=== PATIENT | female | born 1990 | race Caucasian/White ===

== ENCOUNTER 2017-04-19 16:11 | Emergency (ER) | payer BC ==
[2017-04-19] MEDS ORDERED: OXYCODONE-ACETAMINOPHEN 5-325 MG TABLET PO ONE (17:44)
--- NOTE | 2017-04-19 18:00 | ER Document Report ---
HPI - HPI Patient complains to provider of: r axillary pain Onset: Other - 2 days Onset/Duration: Worse Quality of pain: Sharp Pain Level: 4 Context: Patient presents complaining of tenderness to right axilla that radiates along right lateral area. Patient does state that pain makes her nauseous and she vomited 6 times. Patient did take Zofran at home and has not had any vomiting since then. Patient reports pain started 2 days ago. Patient does report that she has a cat and has been scratch to the right wrist but this was over a week ago. Pt States pain increases whenever she lifts her arm or touches her right axilla. Patient has not shaved or apply deodorant for several days. Associated Symptoms: Nausea, Vomiting, Other - Axillary pain. denies: Fever, Headache Exacerbated by: Movement Relieved by: Denies Similar symptoms previously: No Recently seen / treated by doctor: No - ROS ROS below otherwise negative: Yes Systems Reviewed and Negative: Yes All other systems reviewed and negative - CONSTITUTIONAL Constitutional: DENIES: Fever, Chills - NEURO Neurology: DENIES: Weakness - GASTROINTESTINAL Gastrointestinal: REPORTS: Nausea, Patient vomiting. DENIES: Abdominal Pain - REPRODUCTIVE LMP: march 28, 2017 - MUSCULOSKELETAL Musculoskeletal: REPORTS: Extremity pain - r axilla - DERM Skin Color: Normal Skin Problems: None Past Medical History - General Information source: Patient - Social History Smoking Status: Never Smoker Frequency of alcohol use: None Drug Abuse: None Occupation: daycare Family History: Reviewed & Not Pertinent Patient has suicidal ideation: No Patient has homicidal ideation: No - Medical History Medical History: Negative Renal/ Medical History: Denies: Hx Peritoneal Dialysis Surgical Hx: Negative Vertical Provider Document - CONSTITUTIONAL Exam Limitations: No Limitations General Appearance: WD/WN, No Apparent Distress - INFECTION CONTROL TRAVEL OUTSIDE OF THE [place] IN LAST 30 DAYS: No - HEENT HEENT: Atraumatic, Normocephalic - NECK Neck: Normal Inspection - RESPIRATORY Respiratory: Breath Sounds Normal, No Respiratory Distress - CARDIOVASCULAR Cardiovascular: Regular Rate, Regular Rhythm, No Murmur - GI/ABDOMEN Gastrointestinal: Abdomen Soft, Abdomen Non-Tender, No Organomegaly - BACK Back: Normal Inspection - MUSCULOSKELETAL/EXTREMETIES Musculoskeletal/Extremeties: Tender - Exquisite tenderness with palpation of the right axilla, tenderness to right axilla with elevation of right upper extremity, No Edema - NEURO Level of Consciousness: Awake, Alert, Appropriate Motor/Sensory: No Motor Deficit - DERM Integumentary: Warm, Dry Notes: Patient with few scattered erythematous macular lesions to right axilla. Patient with papular lesion that is scabbed to right wrist. Course - Re-evaluation Re-evalutation: 04/19/17 17:58 Dr. Perez to bedside for examination. Recommends treating for possible cat scratch as well as lymphadenitis. Discharge - Discharge Clinical Impression: Nausea, Axillary lymphadenitis Cat scratch of right wrist Qualifiers: Encounter type: initial encounter Qualified Code(s): S60.811A - Abrasion of right wrist, initial encounter Condition: Stable Disposition: HOME, SELF-CARE Instructions: Cat Scratch Fever ([facility]), Anti-Inflammatory Medication ([facility]), Oral Narcotic Medication ([facility]), Azithromycin ([facility]) Additional Instructions: Return immediately for any new or worsening symptoms Followup with your primary care provider, call tomorrow to make a followup appointment Apply warm compresses to right axilla at least 3 times a day Prescriptions: Azithromycin [Zithromax 250 mg Tablet] 250 mg PO DAILY 4 Days Oxycodone HCl/Acetaminophen [Percocet 5-325 mg Tablet] 1 - 2 tab PO ASDIR PRN # 15 tablet PRN Reason: Forms: Return to Work Referrals: YISEL FENG DO [NO LOCAL MD] - Follow up tomorrow
[2017-04-19] MEDS ORDERED: AZITHROMYCIN 250 MG TABLET PO ONE (18:04)
[2017-04-19 18:21] VITALS: BP 110/70
== END 2017-04-19 18:20 | disposition home or self-care (01) ==
LOC: ER 16:11
DX: I88.9 Nonspecific lymphadenitis, unspecified (principal); S60.811A Abrasion of right wrist, initial encounter; W55.03XA Scratched by cat, initial encounter; R11.2 Nausea with vomiting, unspecified
CPT/HCPCS: 99283

== ENCOUNTER 2017-12-26 09:07 | Emergency (ER) | payer BC ==
--- NOTE | 2017-12-26 09:17 | ER Document Report ---
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 Coworker called EMS. Started having nasal congestion and post nasal drip last night, with occasional painful cough, took OTC Tylenol cold and flu severe before bed and again this am. Started Neurontin 100mg up to 3 times per day for anxiety on Sunday. No fever, chest pain, SOB, abd. pain, N/V/D. No rash. at bedside. He and the co worker have witnessed her passing out several times in the room and after it is over has tingling in her legs. The nurse states that she fluttered her eyes and would not respond but then would to touch. Never had syncopal episodes in the past. TRAVEL OUTSIDE OF THE [place] IN LAST 30 DAYS: No - Related Data Allergies/Adverse Reactions: No Known Allergies Allergy (Verified 04/19/17 18:05) Past Medical History - General Information source: Patient - Social History Smoking Status: Never Smoker Frequency of alcohol use: None Drug Abuse: None Lives with: Family Family History: Reviewed & Not Pertinent - Medical History Medical History: Negative Renal/ Medical History: Denies: Hx Peritoneal Dialysis Psychiatric Medical History: Reports: Hx Anxiety Surgical Hx: Negative Review of Systems - Review of Systems Constitutional: No symptoms reported EENT: No symptoms reported Cardiovascular: No symptoms reported Respiratory: No symptoms reported Gastrointestinal: No symptoms reported Genitourinary: No symptoms reported Female Genitourinary: No symptoms reported Musculoskeletal: No symptoms reported Skin: No symptoms reported Hematologic/Lymphatic: No symptoms reported Neurological/Psychological: See HPI Physical Exam - Vital signs Vitals: BP 110/78 12/26/17 09:17 Interpretation: Normal - General General appearance: Appears well, Alert - HEENT Head: Normocephalic, Atraumatic Eyes: Normal Pupils: PERRL Neck: Supple - Respiratory Respiratory status: No respiratory distress Chest status: Nontender Breath sounds: Normal Chest palpation: Normal - Cardiovascular Rhythm: Regular Heart sounds: Normal auscultation Murmur: No - Abdominal Inspection: Normal Distension: No distension Bowel sounds: Normal Tenderness: Nontender Organomegaly: No organomegaly - Back Back: Normal, Nontender - Extremities General upper extremity: Normal inspection, Nontender, Normal color, Normal ROM , Normal temperature General lower extremity: Normal inspection, Nontender, Normal color, Normal ROM , Normal temperature, Normal weight bearing. No: Alena's sign - Neurological Neuro grossly intact: Yes Cognition: Normal Orientation: AAOx4 [place] Coma Scale Eye Opening: Spontaneous [place] Coma Scale Verbal: Oriented [place] Coma Scale Motor: Obeys Commands Rhe[place] Coma Scale Total: 15 Speech: Normal Motor strength normal: LUE, RUE, LLE, RLE Sensory: Normal - Psychological Associated symptoms: Normal affect, Normal mood - Skin Skin Temperature: Warm Skin Moisture: Dry Skin Color: Normal Skin irregularity: negative: Rash Course - Re-evaluation Re-evalutation: 12/26/17 10:17 EKG NSR, no ectopy. - Vital Signs Vital signs: Temp Pulse Resp BP Pulse Ox 97.5 F 60 15 94/56 L 100 12/26/17 09:18 12/26/17 10:39 12/26/17 12:01 12/26/17 12:01 12/26/17 12:01 - Laboratory Result Diagrams: 12/26/17 09:30 12/26/17 09:30 Laboratory results interpreted by me: 12/26/17 12/26/17 12/26/17 09:30 09:30 10:30 WBC 11.7 H Seg Neutrophils % 78.5 H Absolute Neutrophils 9.2 H Chloride 110 H Carbon Dioxide 21 L AST 12 L Urine Blood SMALL H Discharge - Discharge Clinical Impression: syncopal episode, Nasal congestion Condition: Good Disposition: HOME, SELF-CARE Instructions: Syncopal Episode ([facility]), Upper Respiratory Illness ([facility]) Additional Instructions: see your doctor for follow up hold the neurontin since it can cause dizziness to er if symptoms worsen copy of labs, ekg given to you cool mist humidier at night, wash it daily saline nasal spray Forms: Parent Work Note, Return to Work Referrals: CANDE LAM MD [Primary Care Provider] - Follow up as needed
[2017-12-26 09:49] LABS: ABSOLUTE BASOPHILS # (AUTO) 0.1 10^3/uL (0.0-0.2); ABSOLUTE EOSINOPHILS # (AUTO) 0.2 10^3/uL (0.0-0.6); ABSOLUTE LYMPHOCYTES (AUTO) 1.7 10^3/uL (0.5-4.7); ABSOLUTE MONOCYTES (AUTO) 0.6 10^3/uL (0.1-1.4); ABSOLUTE NEUT (AUTO) 9.2 10^3/uL (1.7-8.2); BASOPHILS % (AUTO) 0.6 % (0-2); EOSINOPHILS % (AUTO) 1.8 % (0-6); HEMATOCRIT 40.1 % (36.0-47.0); HEMOGLOBIN 13.7 g/dL (12.0-15.5); LYMPHOCYTES % (AUTO) 14.2 % (13-45); MEAN CORPUSCULAR HGB CONC 34.1 g/dL (32.0-36.0); MEAN CORPUSCULAR VOLUME 85 fl (80-97); MONOCYTES % (AUTO) 4.9 % (3-13); PLATELET COUNT 277 10^3/uL (150-450); RED CELL DISTRIBUTION WIDTH 12.9 % (11.5-14.0); SEGMENTED NEUTROPHILS % (AUTO) 78.5 % (42-78); TOTAL CELLS COUNTED % (AUTO) 100 %; WHITE BLOOD COUNT 11.7 10^3/uL (4.0-10.5)
[2017-12-26 10:00] LABS: ALANINE AMINOTRANSFERASE 24 U/L (9-52); ALBUMIN 3.9 g/dL (3.5-5.0); ALKALINE PHOSPHATASE 47 U/L (38-126); ANION GAP 9 (5-19); ASPARTATE AMINO TRANSFERASE 12 U/L (14-36); BILIRUBIN,DIRECT 0.4 mg/dL (0.0-0.4); BILIRUBIN,TOTAL 0.5 mg/dL (0.2-1.3); BLOOD UREA NITROGEN 10 mg/dL (7-20); CALCIUM 9.2 mg/dL (8.4-10.2); CARBON DIOXIDE 21 mmol/L (22-30); CHLORIDE 110 mmol/L (98-107); CREATINE KINASE 49 U/L (30-135); GLUCOSE 88 mg/dL (75-110); POTASSIUM 4.3 mmol/L (3.6-5.0); SODIUM 139.9 mmol/L (137-145); TOTAL PROTEIN 6.8 g/dL (6.3-8.2)
[2017-12-26 10:14] LABS: CREATINE KINASE MB < 0.22 ng/mL (<4.55); TROPONIN I < 0.012 ng/mL
[2017-12-26] MEDS ORDERED: NORMAL SALINE 1000 ML 1,000 ML IV ONE (10:17)
[2017-12-26 11:28] LABS: APPEARANCE,URINE CLEAR; BILIRUBIN,URINE NEGATIVE (NEGATIVE); COLOR,URINE YELLOW; GLUCOSE, URINE NEGATIVE (NEGATIVE); KETONES,URINE NEGATIVE (NEGATIVE); LEUKOCYTE ESTERASE,URINE NEGATIVE (NEGATIVE); NITRITE,URINE NEGATIVE (NEGATIVE); PROTEIN,URINE NEGATIVE (NEGATIVE); UROBILINOGEN,URINE NEGATIVE mg/dL (<2.0)
[2017-12-26 11:40] LABS: URINE AMPHETAMINES SCREEN NEGATIVE; URINE BARBITURATES SCREEN NEGATIVE; URINE BENZODIAZEPINES SCREEN UNCONFIRMED POSITIVE; URINE COCAINE SCREEN NEGATIVE; URINE MARIJUANA (THC) SCREEN NEGATIVE; URINE METHADONE SCREEN NEGATIVE; URINE PHENCYCLIDINE SCREEN NEGATIVE
[2017-12-26 12:17] VITALS: BP 94/56
--- NOTE | 2017-12-26 12:52 | EKG REPORT ---
SEVERITY:- BORDERLINE ECG - SINUS RHYTHM BORDERLINE RIGHT AXIS DEVIATION BORDERLINE T ABNORMALITIES, ANT-LAT LEADS : Confirmed by: Fritz Harry MD 26-Dec-2017 12:52:13
== END 2017-12-26 12:25 | disposition home or self-care (01) ==
LOC: ER 09:07
DX: R55 Syncope and collapse (principal); R09.81 Nasal congestion; R06.02 Shortness of breath; R42 Dizziness and giddiness; R09.82 Postnasal drip; R05 Cough; F41.9 Anxiety disorder, unspecified; Z79.899 Other long term (current) drug therapy
CPT/HCPCS: 93005; 99284; 96360; 36415; 82553; 82550; 84703; 85025; 80053; 81001; 84484; 80307; 93010; J7030

== ENCOUNTER 2018-01-15 09:04 | Emergency (ER) | payer BC ==
[2018-01-15 09:59] LABS: APPEARANCE,URINE SLIGHTLY-CLOUDY; BILIRUBIN,URINE NEGATIVE (NEGATIVE); COLOR,URINE YELLOW; GLUCOSE, URINE NEGATIVE (NEGATIVE); KETONES,URINE NEGATIVE (NEGATIVE); LEUKOCYTE ESTERASE,URINE NEGATIVE (NEGATIVE); NITRITE,URINE NEGATIVE (NEGATIVE); PROTEIN,URINE NEGATIVE (NEGATIVE); URINE SPECIFIC GRAVITY 1.026
[2018-01-15] MEDS ORDERED: HYDROCODONE/ACETAMINOPHEN 5-325 MG TABLET PO ONE (10:04)
[2018-01-15] MEDS ORDERED: ONDANSETRON 4 MG TAB.RAPDIS PO ONE (10:04)
[2018-01-15] MEDS ORDERED: IBUPROFEN 800 MG TABLET PO ONE (10:05)
--- NOTE | 2018-01-15 11:34 | ER Document Report ---
ED General - General Chief Complaint: Abdominal Pain Stated Complaint: ABDOMINAL PAIN, VAGINAL SPOTTING/DISCHARGE Time Seen by Provider: 01/15/18 09:17 Notes: This is a 27-year-old female to the emergency department chief complaint of vaginal bleeding and pelvic pain. Patient states that she began having some sharp and severe pain earlier this morning. Does not know if she is or not. Some vaginal discharge as well as vaginal bleeding. Some nausea. Denies any fever. Denies any diarrhea. No other sick contacts at home. Patient states that she does have a history of ovarian cysts. TRAVEL OUTSIDE OF THE [place] IN LAST 30 DAYS: No - HPI Onset: Just prior to arrival Severity: Moderate Pain Level: 3 Associated symptoms: Nausea - Related Data Allergies/Adverse Reactions: No Known Allergies Allergy (Verified 01/15/18 09:06) Past Medical History - General Information source: Patient - Social History Smoking Status: Never Smoker Cigarette use (# per day): No Frequency of alcohol use: None Drug Abuse: None Lives with: Family Family History: Reviewed & Not Pertinent Patient has suicidal ideation: No Patient has homicidal ideation: No Renal/ Medical History: Denies: Hx Peritoneal Dialysis Psychiatric Medical History: Reports: Hx Anxiety Past Surgical History: Reports: Hx Appendectomy Review of Systems - Review of Systems Constitutional: No symptoms reported EENT: No symptoms reported Cardiovascular: No symptoms reported Respiratory: No symptoms reported Gastrointestinal: No symptoms reported, Abdominal pain Genitourinary: No symptoms reported Female Genitourinary: No symptoms reported, Vaginal discharge, Vaginal bleeding Musculoskeletal: No symptoms reported Skin: No symptoms reported Hematologic/Lymphatic: No symptoms reported Neurological/Psychological: No symptoms reported Physical Exam - Vital signs Vitals: Temp Pulse Resp BP Pulse Ox 97.9 F 78 18 106/74 100 01/15/18 09:08 01/15/18 09:08 01/15/18 09:08 01/15/18 09:08 01/15/18 09:08 Interpretation: Normal - General General appearance: Appears well, Alert - HEENT Head: Normocephalic, Atraumatic Eyes: Normal Pupils: PERRL - Respiratory Respiratory status: No respiratory distress Chest status: Nontender Breath sounds: Normal Chest palpation: Normal - Cardiovascular Rhythm: Regular Heart sounds: Normal auscultation Murmur: No - Abdominal Inspection: Normal Distension: No distension Bowel sounds: Normal Tenderness: Other - Mild suprapubic tenderness/pelvic tenderness Organomegaly: No organomegaly - Genitourinary External exam: Normal Speculum exam: Normal Vaginal bleeding: None Bimanuel exam: Other - Mild tenderness to palpation in the left adnexa. No obvious masses. - Back Back: Normal, Nontender - Extremities General upper extremity: Normal inspection, Nontender, Normal color, Normal ROM , Normal temperature General lower extremity: Normal inspection, Nontender, Normal color, Normal ROM , Normal temperature, Normal weight bearing. No: Alena's sign - Neurological Neuro grossly intact: Yes Cognition: Normal Orientation: AAOx4 [place] Coma Scale Eye Opening: Spontaneous [place] Coma Scale Verbal: Oriented [place] Coma Scale Motor: Obeys Commands [place] Coma Scale Total: 15 Speech: Normal Motor strength normal: LUE, RUE, LLE, RLE Sensory: Normal - Psychological Associated symptoms: Normal affect, Normal mood - Skin Skin Temperature: Warm Skin Moisture: Dry Skin Color: Normal Course - Re-evaluation Re-evalutation: 01/15/18 11:33 Well-appearing female in no acute distress. Not . Urine unremarkable. Will get pelvic ultrasound to rule out ovarian torsion. Pelvic exam. Reassess. 01/15/18 11:55 Ultrasound confirms a left ovarian cyst. No evidence of . No evidence of torsion. No evidence of ectopic. At this time will recommend follow-up with [facility]. Have given oral as well as intramuscular pain injection - Vital Signs Vital signs: Temp Pulse Resp BP Pulse Ox 97.9 F 78 18 106/74 100 01/15/18 09:08 01/15/18 09:08 01/15/18 09:08 01/15/18 09:08 01/15/18 09:08 - Laboratory Laboratory results interpreted by me: 01/15/18 09:37 Urine Urobilinogen 4.0 H Discharge - Discharge Clinical Impression: Ovarian cyst Qualifiers: Laterality: left Qualified Code(s): N83.202 - Unspecified ovarian cyst, left side Condition: Good Disposition: HOME, SELF-CARE Instructions: Ovarian Cyst ([facility]) Prescriptions: Ondansetron [Zofran Odt 4 mg Tablet] 1 - 2 tab PO Q4HP PRN #10 tab.rapdis PRN Reason: Hydrocodone/Acetaminophen [[place] 5-325 mg Tablet] 1 tab PO TID PRN 3 Days #12 tablet PRN Reason: Ibuprofen [Motrin 800 mg Tablet] 800 mg PO Q8H PRN #30 tab PRN Reason: Referrals: ELIAN POOL PA-C [Primary Care Provider] - Follow up as needed THI DIAZ MD [ACTIVE STAFF] - Follow up as needed
--- NOTE | 2018-01-15 11:47 | RADIOLOGY REPORT (SQ) ---
EXAM DESCRIPTION: U/S NON OB PEL TV W/DOPPLER COMPLETED DATE/TIME: 01/15/2018 11:32 am REASON FOR STUDY: pelvic pain, hx of cyst COMPARISON: None. TECHNIQUE: Dynamic and static grayscale images acquired of the pelvis via transvaginal approach and recorded on PACS. Additional selected color Doppler and spectral images recorded. LIMITATIONS: None. FINDINGS: UTERUS: Contour normal. No mass. ENDOMETRIAL STRIPE: No focal or generalized thickening. No masses. CERVIX: Nabothian cyst RIGHT OVARY: Not visualized RIGHT OVARY DOPPLER: Not visualized LEFT OVARY: Multiple small benign appearing cysts. Largest 2 cm. LEFT OVARY DOPPLER: Normal arterial vascular flow without evidence for torsion. FREE FLUID: None noted. OTHER: No other significant finding. MEASUREMENTS: UTERUS: 9.0 x 6.7 x 4.4 cm ENDOMETRIAL STRIPE: 9.3 mm RIGHT OVARY: Not visualized LEFT OVARY: 3.5 x 2.3 x 2.8 cm IMPRESSION: Multiple small benign-appearing left ovarian cysts. Right ovary not visualized. TECHNICAL DOCUMENTATION: JOB ID: [id number] [employer]- All Rights Reserved Reading location - IP/workstation name: [email or web address]
[2018-01-15] MEDS ORDERED: HYDROMORPHONE HCL INJ/PF 2 MG/ML AMPULE IV ONE (11:54)
[2018-01-15] MEDS ORDERED: KETOROLAC TROMETHAMINE 60 MG/2 ML SDV IM ONE (11:54)
[2018-01-15 12:07] LABS: RBCS (WET MOUNT) RARE RBCS SEEN; T.VAGINALIS (WET MOUNT) NO TRICHOMONAS SEEN; WBCS (WET MOUNT) 1+ WBCS SEEN; YEAST (WET MOUNT) NO YEAST SEEN
[2018-01-15 13:40] VITALS: BP 110/68
[2018-01-15 13:48] LABS: CHLAM PCR NOT DETECTED (NOT DETECT); GON PCR NOT DETECTED (NOT DETECT)
== END 2018-01-15 14:03 | disposition home or self-care (01) ==
LOC: ER 09:04
DX: N83.202 Unspecified ovarian cyst, left side (principal); R10.2 Pelvic and perineal pain; N93.9 Abnormal uterine and vaginal bleeding, unspecified; N89.8 Other specified noninflammatory disorders of vagina; R11.0 Nausea; Z90.49 Acquired absence of other specified parts of digestive tract
CPT/HCPCS: 99284; 96372; 96374; 87210; 81025; 81001; 87491; 87591; 76830; 93976; J1885; S0119; J1170

== ENCOUNTER → 2018-04-11 | Outpatient (CLI) | payer BC ==
[2018-04-11 11:54] LABS: ABSOLUTE BASOPHILS # (AUTO) 0.1 10^3/uL (0.0-0.2); ABSOLUTE LYMPHOCYTES (AUTO) 2.2 10^3/uL (0.5-4.7); ABSOLUTE MONOCYTES (AUTO) 0.4 10^3/uL (0.1-1.4); ABSOLUTE NEUT (AUTO) 2.9 10^3/uL (1.7-8.2); BASOPHILS % (AUTO) 0.9 % (0-2); EOSINOPHILS % (AUTO) 0.6 % (0-6); HEMATOCRIT 40.1 % (36.0-47.0); HEMOGLOBIN 13.9 g/dL (12.0-15.5); LYMPHOCYTES % (AUTO) 39.1 % (13-45); MEAN CORPUSCULAR HEMOGLOBIN 29.8 pg (27.0-33.4); MEAN CORPUSCULAR HGB CONC 34.6 g/dL (32.0-36.0); MEAN CORPUSCULAR VOLUME 86 fl (80-97); PLATELET COUNT 281 10^3/uL (150-450); RED BLOOD COUNT 4.65 10^6/uL (3.72-5.28); RED CELL DISTRIBUTION WIDTH 13.7 % (11.5-14.0); SEGMENTED NEUTROPHILS % (AUTO) 52.4 % (42-78); TOTAL CELLS COUNTED % (AUTO) 100 %; WHITE BLOOD COUNT 5.5 10^3/uL (4.0-10.5)
[2018-04-11 12:12] LABS: ALANINE AMINOTRANSFERASE 21 U/L (9-52); ALBUMIN 4.8 g/dL (3.5-5.0); ALKALINE PHOSPHATASE 44 U/L (38-126); ANION GAP 12 (5-19); ASPARTATE AMINO TRANSFERASE 15 U/L (14-36); BILIRUBIN,DIRECT 0.2 mg/dL (0.0-0.4); BILIRUBIN,TOTAL 0.6 mg/dL (0.2-1.3); BLOOD UREA NITROGEN 11 mg/dL (7-20); CALCIUM 9.8 mg/dL (8.4-10.2); CARBON DIOXIDE 24 mmol/L (22-30); CHLORIDE 107 mmol/L (98-107); CHOLESTEROL 187.94 mg/dL (0-200); GLUCOSE 80 mg/dL (75-110); POTASSIUM 4.4 mmol/L (3.6-5.0); SODIUM 143.4 mmol/L (137-145); TOTAL PROTEIN 7.8 g/dL (6.3-8.2); TRIGLYCERIDES 43 mg/dL (<150)
[2018-04-11 12:23] LABS: DIRECT LDL 94 mg/dL (<100)
== END ==
LOC: OD 11:07
PROVIDERS: ATTEND Psychiatry & Neurology Psychiatry
DX: F33.1 Major depressive disorder, recurrent, moderate (principal); F41.1 Generalized anxiety disorder; F41.8 Other specified anxiety disorders; F43.10 Post-traumatic stress disorder, unspecified; G47.00 Insomnia, unspecified
CPT/HCPCS: 36415; 80053; 80061; 84443; 85025

== ENCOUNTER 2018-10-12 09:43 | Outpatient (CLI) | payer BC, MEDICAID ==
[2018-10-12 10:36] LABS: RBCS (WET MOUNT) RARE RBCS SEEN; T.VAGINALIS (WET MOUNT) NO TRICHOMONAS SEEN; WBCS (WET MOUNT) 1+ WBCS SEEN; YEAST (WET MOUNT) NO YEAST SEEN
[2018-10-12 10:57] LABS: URINE AMPHETAMINES SCREEN NEGATIVE; URINE BARBITURATES SCREEN NEGATIVE; URINE BENZODIAZEPINES SCREEN NEGATIVE; URINE COCAINE SCREEN NEGATIVE; URINE MARIJUANA (THC) SCREEN NEGATIVE; URINE METHADONE SCREEN NEGATIVE; URINE PHENCYCLIDINE SCREEN NEGATIVE
[2018-10-12 11:12] LABS: AMORPHOUS SEDIMENT,URINE TRACE /HPF; APPEARANCE,URINE TURBID; BILIRUBIN,URINE NEGATIVE (NEGATIVE); COLOR,URINE AMBER; GLUCOSE, URINE NEGATIVE (NEGATIVE); KETONES,URINE NEGATIVE (NEGATIVE); LEUKOCYTE ESTERASE,URINE NEGATIVE (NEGATIVE); NITRITE,URINE NEGATIVE (NEGATIVE); PROTEIN,URINE NEGATIVE (NEGATIVE); URINE SPECIFIC GRAVITY 1.019
== END 2018-10-12 12:12 | disposition home or self-care (01) ==
LOC: LC 09:43
PROVIDERS: ATTEND Obstetrics & Gynecology
PROC: 4A1HXCZ Monitoring of Products of Conception, Cardiac Rate, External Approach (ICD-10-PCS; principal; 2018-10-12)
DX: O23.593 Infection of other part of genital tract in pregnancy, third trimester (principal); N76.0 Acute vaginitis; B96.89 Other specified bacterial agents as the cause of diseases classified elsewhere; Z3A.29 29 weeks gestation of pregnancy
CPT/HCPCS: 80307; 81001; 87210

== ENCOUNTER 2018-11-27 15:18 | Outpatient (CLI) | payer BC, MEDICAID ==
--- NOTE | 2018-11-27 15:51 | Non Stress Test Report ---
Non Stress Test Datetime Report Generated by CPN: 11/27/2018 15:50 DEMOGRAPHIC EGA NST: 36.0 INDICATION Indication for Study: Diabetes Mellitus; Ordered by Provider VITAL SIGNS Temperature - NST: 98.4 Pulse - NST: 85 RESP - NST: 17 NBPSYS NST: 97 NBPDIA NST: 57 MONITORING Monitor Explained: Monitor Explained; Test Explained; Patient Verbalized Understanding Time on Monitor: 11/27/2018 15:28 Time off Monitor: 11/27/2018 15:49 NST Duration: 21 NST INTERVENTIONS NST Interventions: PO Hydration; Reposition Patient Physician Notified NST: Dr Younger BABY A: [id number] BABY A Movement : Present Contraction Frequency : denies FHR Baseline : 150 Accelerations : 15X15 Decelerations : None Variability : Moderate 6-25bpm NST Review: Meets Criteria for Reactive NST NST Review and Verified By : MK Oconnell Results: Reactive NST REPORT Report Trigger: Send Report
== END 2018-11-27 16:02 | disposition home or self-care (01) ==
LOC: LC 15:18
PROVIDERS: ATTEND Obstetrics & Gynecology
PROC: 4A1HXCZ Monitoring of Products of Conception, Cardiac Rate, External Approach (ICD-10-PCS; principal; 2018-11-27)
DX: O24.419 Gestational diabetes mellitus in pregnancy, unspecified control (principal); Z3A.36 36 weeks gestation of pregnancy
CPT/HCPCS: 59025

== ENCOUNTER 2018-12-04 14:49 | Outpatient (CLI) | payer BC, MEDICAID ==
--- NOTE | 2018-12-04 15:53 | Non Stress Test Report ---
Non Stress Test Datetime Report Generated by CPN: 12/04/2018 15:52 DEMOGRAPHIC EGA NST: 37.0 INDICATION Indication for Study: Diabetes Mellitus; Ordered by Provider VITAL SIGNS Temperature - NST: 98.4 Pulse - NST: 107 RESP - NST: 16 NBPSYS NST: 101 NBPDIA NST: 67 MONITORING Monitor Explained: Monitor Explained; Test Explained; Patient Verbalized Understanding; Other Time on Monitor: 12/04/2018 14:56 Time off Monitor: 12/04/2018 15:42 NST Duration: 46 NST INTERVENTIONS NST Interventions: PO Hydration; Reposition Patient Physician Notified NST: C Flood CNM BABY A: [id number] BABY A Movement : Present Accelerations : 15X15 Decelerations : None Variability : Moderate 6-25bpm NST Review: Questionable if Meets Criteria for Reactive NST NST Review and Verified By : Chaka Solitario RN NST REPORT Report Trigger: Send Report
== END 2018-12-04 15:46 | disposition home or self-care (01) ==
LOC: LC 14:49
PROVIDERS: ATTEND Obstetrics & Gynecology
PROC: 4A1HXCZ Monitoring of Products of Conception, Cardiac Rate, External Approach (ICD-10-PCS; principal; 2018-12-04)
DX: O24.419 Gestational diabetes mellitus in pregnancy, unspecified control (principal); Z3A.37 37 weeks gestation of pregnancy
CPT/HCPCS: 59025

== ENCOUNTER 2018-12-06 23:58 | Outpatient (CLI) | payer BC, MEDICAID ==
[2018-12-07 00:28] LABS: APPEARANCE,URINE SLIGHTLY-CLOUDY; BILIRUBIN,URINE NEGATIVE (NEGATIVE); COLOR,URINE YELLOW; GLUCOSE, URINE NEGATIVE (NEGATIVE); KETONES,URINE NEGATIVE (NEGATIVE); LEUKOCYTE ESTERASE,URINE TRACE (NEGATIVE); NITRITE,URINE NEGATIVE (NEGATIVE); PROTEIN,URINE NEGATIVE (NEGATIVE); URINE SPECIFIC GRAVITY 1.008; UROBILINOGEN,URINE NEGATIVE mg/dL (<2.0)
[2018-12-07 00:47] LABS: URINE AMPHETAMINES SCREEN NEGATIVE; URINE BARBITURATES SCREEN NEGATIVE; URINE BENZODIAZEPINES SCREEN NEGATIVE; URINE COCAINE SCREEN NEGATIVE; URINE MARIJUANA (THC) SCREEN NEGATIVE; URINE METHADONE SCREEN NEGATIVE; URINE PHENCYCLIDINE SCREEN NEGATIVE
--- NOTE | 2018-12-07 00:51 | Non Stress Test Report ---
Non Stress Test Datetime Report Generated by CPN: 12/07/2018 00:51 DEMOGRAPHIC EGA NST: 37.3 INDICATION Indication for Study: Ordered by Provider MONITORING Monitor Explained: Monitor Explained; Test Explained; Patient Verbalized Understanding Time on Monitor: 12/07/2018 00:16 Time off Monitor: 12/07/2018 00:44 NST Duration: 28 NST INTERVENTIONS NST Interventions: PO Hydration Physician Notified NST: Dr. Younger BABY A: [id number] BABY A Movement : Present Contraction Frequency : irregular FHR Baseline : 120 Accelerations : 15X15 Decelerations : None Variability : Moderate 6-25bpm NST Review: Meets Criteria for Reactive NST NST Review and Verified By : Garrett Mendez RN NST Results: Reactive NST REPORT Report Trigger: Send Report
== END 2018-12-07 00:55 | disposition home or self-care (01) ==
LOC: LC 23:58
PROVIDERS: ATTEND Obstetrics & Gynecology
PROC: 4A1HXCZ Monitoring of Products of Conception, Cardiac Rate, External Approach (ICD-10-PCS; principal; 2018-12-06)
DX: O47.1 False labor at or after 37 completed weeks of gestation (principal); O36.8130 Decreased fetal movements, third trimester, not applicable or unspecified; Z3A.37 37 weeks gestation of pregnancy
CPT/HCPCS: 59025; 80307; 81005

== ENCOUNTER 2018-12-19 05:20 | Inpatient (IN) | payer BC, MEDICAID ==
[2018-12-17 11:48] LABS: ABSOLUTE EOSINOPHILS # (AUTO) 0.1 10^3/uL (0.0-0.6); ABSOLUTE LYMPHOCYTES (AUTO) 1.7 10^3/uL (0.5-4.7); ABSOLUTE MONOCYTES (AUTO) 0.6 10^3/uL (0.1-1.4); ABSOLUTE NEUT (AUTO) 7.5 10^3/uL (1.7-8.2); BASOPHILS % (AUTO) 0.4 % (0-2); EOSINOPHILS % (AUTO) 0.6 % (0-6); HEMATOCRIT 36.7 % (36.0-47.0); HEMOGLOBIN 13.1 g/dL (12.0-15.5); LYMPHOCYTES % (AUTO) 16.9 % (13-45); MEAN CORPUSCULAR HEMOGLOBIN 31.9 pg (27.0-33.4); MEAN CORPUSCULAR HGB CONC 35.6 g/dL (32.0-36.0); MEAN CORPUSCULAR VOLUME 90 fl (80-97); MONOCYTES % (AUTO) 6.3 % (3-13); PLATELET COUNT 244 10^3/uL (150-450); RED BLOOD COUNT 4.09 10^6/uL (3.72-5.28); RED CELL DISTRIBUTION WIDTH 13.2 % (11.5-14.0); SEGMENTED NEUTROPHILS % (AUTO) 75.8 % (42-78); TOTAL CELLS COUNTED % (AUTO) 100 %; WHITE BLOOD COUNT 9.9 10^3/uL (4.0-10.5)
[2018-12-17 11:58] LABS: AMORPHOUS SEDIMENT,URINE TRACE /HPF; APPEARANCE,URINE CLOUDY; BILIRUBIN,URINE NEGATIVE (NEGATIVE); COLOR,URINE YELLOW; GLUCOSE, URINE NEGATIVE (NEGATIVE); KETONES,URINE NEGATIVE (NEGATIVE); LEUKOCYTE ESTERASE,URINE NEGATIVE (NEGATIVE); NITRITE,URINE NEGATIVE (NEGATIVE); PROTEIN,URINE NEGATIVE (NEGATIVE); URINE SPECIFIC GRAVITY 1.013; UROBILINOGEN,URINE NEGATIVE mg/dL (<2.0)
[2018-12-17 12:23] LABS: URINE AMPHETAMINES SCREEN NEGATIVE; URINE BARBITURATES SCREEN NEGATIVE; URINE BENZODIAZEPINES SCREEN NEGATIVE; URINE COCAINE SCREEN NEGATIVE; URINE MARIJUANA (THC) SCREEN NEGATIVE; URINE METHADONE SCREEN NEGATIVE; URINE PHENCYCLIDINE SCREEN NEGATIVE
[~2018-12-19 05:20] MED LIST: CEFAZOLIN 1 GM/D5W RTU 1 GM/50 ML RTUPB IV PRN; LACTATED RINGERS 1000 ML IV PRN; LIDOCAINE 0.5% INJ-PF (5 MG/ML) 50 ML SDV SUBCUT PRN; RINGERS SOLUTION,LACTATED 1,000 ML IV PRN
[2018-12-19] MEDS ORDERED: OXYTOCIN 10 UNIT/ML VIAL ONE (08:00)
[2018-12-19] MEDS ORDERED: MIDAZOLAM 2 MG/2 ML INJ ONE ×2 (08:00→08:30)
[2018-12-19] MEDS ORDERED: OXYTOCIN/NORMAL SALINE 20 UNIT/1,000 ML RTUINJ ONE (08:01)
[2018-12-19] MEDS ORDERED: MORPHINE SULFATE 10 MG/ML INJ ONE ×2 (08:01→10:16)
[2018-12-19] MEDS ORDERED: DIPHENHYDRAMINE HCL 50 MG/ML VIAL IV PRN (08:08)
[2018-12-19] MEDS ORDERED: MORPHINE SULFATE 10 MG/ML INJ IV PRN (08:08)
[2018-12-19] MEDS ORDERED: PROMETHAZINE HCL INJ 25 MG/1 ML VIAL IV PRN ×3 (08:08→08:55)
[2018-12-19] MEDS ORDERED: MEPERIDINE HCL/PF INJ 25 MG/1 ML DISP.SYRIN IV PRN (08:08)
[2018-12-19] MEDS ORDERED: FENTANYL CITRATE INJ/PF 100 MCG/2 ML AMPUL IV PRN ×3 (08:08)
[2018-12-19] MEDS ORDERED: OXYTOCIN/NORMAL SALINE 20 UNIT/1,000 ML RTUINJ IV PRN (08:55)
[2018-12-19] MEDS ORDERED: MEASLES,MUMPS&RUBELLA VACC/PF 0.5 ML VIAL SUBCUT PRN (08:55)
[2018-12-19] MEDS ORDERED: DIPH/PERTUSS(ACELL)/TETANUS VAC/PF 0.5 ML SYR (>=10YO) IM PRN (08:55)
[2018-12-19] MEDS ORDERED: SIMETHICONE 80 MG TAB.CHEW PO PRN (08:55)
[2018-12-19] MEDS ORDERED: MORPHINE SULFATE 10 MG/ML INJ IM PRN (08:55)
[2018-12-19] MEDS ORDERED: ACETAMINOPHEN 325 MG TABLET PO PRN (08:55)
[2018-12-19] MEDS ORDERED: ACETAMINOPHEN 1,000 MG/100 ML RTUPB IV ONE (08:58)
--- NOTE | 2018-12-19 08:58 | PDOC DELIVERY SUMMARY ---
Delivery Summary - Maternal Hx : II Hx # Term Pregnancies: 2 ANGELES: 12/25/16 Risk Factors: Other Ruptured Membranes: AROM Fluids: Clear - Delivery Labor: Not In Labor Presentation: Vertex Heart Rate Monitoring: Done Pre-Operatively, Externally Support Person Present: Yes : Scheduled Placenta: Within Normal Limits Nuchal Cord: No - Medications Type of Anesthesia:: Spinal
--- NOTE | 2018-12-19 09:01 | OPERATIVE REPORT E ---
Operative Report NAME: ELIAN BONILLA : 1990 AGE: 28Y DATE OF SURGERY: 12/19/2018 ROOM: 227 PREOPERATIVE DIAGNOSIS: INTRAUTERINE AT TERM WITH HISTORY OF PRIOR VAGINAL TRAUMA. POSTOPERATIVE DIAGNOSIS: INTRAUTERINE AT TERM WITH HISTORY OF PRIOR VAGINAL TRAUMA. PROCEDURE: Primary low transverse section with delivery of a viable female, Apgars of 9 and 9., weight is pending. SURGEON: Chaka MCKEON M.D. TISSUE REMOVED Placenta. ESTIMATED BLOOD LOSS: Less than 600 mL. ANESTHESIA: Spinal. PROCEDURE: The patient was placed in the supine position and prepped and draped in a sterile fashion. A Pfannenstiel incision was made and incision extended through the subcutaneous tissue with fascia sharp dissection. Fascia was sharply divided. Rectus muscle was bluntly and sharply divided. Parietal peritoneum was entered with sharp dissection. The uterus was nicked in the midline and extended bilaterally. was then delivered through the uterine abdominal incision. Nose and mouth were suctioned with bulb syringe, cord was clamped, and was passed from the table. Placenta was manually extracted. The uterus was closed using 2 layers using #1 Vicryl. The first running stitch and the second a Lembert stitch imbricating the first layer. There were several areas of bleeding noted and controlled with figure of eight sutures of 0 Vicryl. The fascia closed with 0 Vicryl, and the skin was closed with subcutaneous absorbable landry. Patient tolerated well and was taken to recovery in good condition. Her urine remained clear throughout the procedure. Infant went to [facility] in good condition. DICTATING PHYSICIAN: Chaka MCKEON M.D. [id number] [facility]#: [id number] ID: [id number] JOB#: [id number] ACCT: [id number] cc:Chaka MCKEON M.D. >
[2018-12-19] MEDS: FENTANYL CITRATE INJ/PF 100 MCG/2 ML AMPUL ONE ×4 (09:30→10:20)
[2018-12-19] MEDS ORDERED: PROMETHAZINE HCL INJ 25 MG/1 ML VIAL ONE (09:33)
[2018-12-19] MEDS ORDERED: KETOROLAC TROMETHAMINE INJ/PF 30 MG/1 ML SDV ONE (10:36)
[2018-12-19] MEDS: OXYCODONE-ACETAMINOPHEN 5-325 MG TABLET PO PRN ×3 (12:19→20:27)
[2018-12-19] MEDS: KETOROLAC TROMETHAMINE INJ/PF 30 MG/1 ML SDV IV SCH (17:53)
[2018-12-19] MEDS: DOCUSATE SODIUM 100 MG CAPSULE PO SCH (17:54)
[2018-12-20] MEDS: OXYCODONE-ACETAMINOPHEN 5-325 MG TABLET PO PRN ×5 (00:31→20:26)
[2018-12-20] MEDS: KETOROLAC TROMETHAMINE INJ/PF 30 MG/1 ML SDV IV SCH (02:37)
[2018-12-20 08:24] LABS: HEMATOCRIT 34.2 % (36.0-47.0); MEAN CORPUSCULAR HEMOGLOBIN 31.9 pg (27.0-33.4); MEAN CORPUSCULAR HGB CONC 35.2 g/dL (32.0-36.0); MEAN CORPUSCULAR VOLUME 91 fl (80-97); PLATELET COUNT 214 10^3/uL (150-450); RED BLOOD COUNT 3.77 10^6/uL (3.72-5.28); RED CELL DISTRIBUTION WIDTH 12.9 % (11.5-14.0); WHITE BLOOD COUNT 12.2 10^3/uL (4.0-10.5)
[2018-12-20] MEDS: PRENATAL VITAMIN W DHA CAPSULE PO SCH (10:08)
[2018-12-20] MEDS: DOCUSATE SODIUM 100 MG CAPSULE PO SCH ×2 (10:08→20:15)
[2018-12-20] MEDS: IBUPROFEN 800 MG TABLET PO SCH ×2 (11:36→20:15)
--- NOTE | 2018-12-20 13:08 | PDOC PROGRESS REPORT ---
Subjective-OB Progress Note for:: 12/20/18 Subjective: Pt doing well, no concerns. She reports light bleeding, reg diet and +flatus. Ambulatory Physical Exam (OB) Vital Signs: Temp Pulse Resp BP Pulse Ox 97.4 F 73 18 119/77 99 12/20/18 08:28 12/20/18 08:28 12/20/18 08:28 12/20/18 08:28 12/20/18 08:28 Intake & Output 12/19/18 12/20/18 12/21/18 06:59 06:59 06:59 Intake Total 2550 300 Output Total 3325 Balance -775 300 - PIH/Pre-Eclampsia DTR's: 2 + Clonus: Negative Headache: Absent Epigastric Pain: No Visual Changes: No - Dressing Removed: No Incision: Dressing - Lochia Lochia Amount: Scant < 10 ml Lochia Color: Rubra/Red - Abdomen Description: Tender Hernia Present: No Fundal Description: Firm, Midline Fundal Height: u/u - u/2 Objective-Diagnostic Laboratory: 12/20/18 07:56 12/20/18 12/20/18 07:56 07:56 WBC 12.2 H RBC 3.77 Hgb 12.0 Hct 34.2 L MCV 91 MCH 31.9 MCHC 35.2 RDW 12.9 Plt Count 214 Blood Type A NEGATIVE Assessment and Plan(PN) - Assessment and Plan (1) Status post primary low transverse section Is this a current diagnosis for this admission?: Yes - Time Spent with Patient Time with patient: Less than 15 minutes Medications reviewed and adjusted accordingly: Yes - Disposition Anticipated Discharge: Home Within: within 24 hours, within 48 hours
[2018-12-21] MEDS: IBUPROFEN 800 MG TABLET PO SCH ×3 (01:54→12:41)
[2018-12-21] MEDS: OXYCODONE-ACETAMINOPHEN 5-325 MG TABLET PO PRN ×2 (01:57→09:55)
[2018-12-21] MEDS: KETOROLAC TROMETHAMINE INJ/PF 30 MG/1 ML SDV IV SCH ×2 (03:58→09:56)
--- NOTE | 2018-12-21 09:34 | PDOC DISCHARGE SUMMARY ---
Final Diagnosis Discharge Date: 12/21/18 - Final Diagnosis (1) Status post primary low transverse section Is this a current diagnosis for this admission?: Yes Discharge Data - Discharge Medication Prescriptions: Oxycodone HCl/Acetaminophen [Percocet 5-325 mg Tablet] 1 tab PO Q4HP PRN #30 tablet PRN Reason: Ibuprofen [Motrin 800 mg Tablet] 800 mg PO Q8HP PRN #60 tablet PRN Reason: Home Medications: Clomiphene Citrate [Serophene 50 mg Tablet] 1 tab PO DAILY 10/12/18 Dronabinol [Marinol 2.5 mg Capsule] 1 tab PO DAILY 10/12/18 Jaqroc99/Iron Fum,Ps/Folic/Dha [Provida Dha Capsule] 1 tab PO DAILY 10/12/18 Sertraline HCl [Zoloft 50 mg Tablet] 1 tab PO DAILY 10/12/18 Ibuprofen [Motrin 800 mg Tablet] 800 mg PO Q8HP PRN #60 tablet 12/21/18 Oxycodone HCl/Acetaminophen [Percocet 5-325 mg Tablet] 1 tab PO Q4HP PRN #30 tablet 12/21/18 Reason(s) for Admission: Ceasarean Section-Primary Procedures: None Intrapartum Procedure(s): : Low Cervical, Transverse - Diagnosis Test Laboratory: Temp Pulse Resp BP Pulse Ox 98.2 F 78 18 113/71 98 12/21/18 07:32 12/21/18 07:32 12/21/18 07:32 12/21/18 07:32 12/21/18 07:32 12/17/18 12/17/18 12/20/18 11:10 11:10 07:56 RBC 4.09 3.77 Hgb 13.1 12.0 Hct 36.7 34.2 L Urine Opiates Screen NEGATIVE - Discharge information/Instructions Discharge Activity: Activity As Tolerated, No Lifting Over 10 Pounds, No Lifting/Push/Pulling, Pelvic Rest, No tub bath Discharge Diet: Regular Disposition: HOME, SELF-CARE Follow [facility] with: [facility] in: 5, Days
[2018-12-21] MEDS: DOCUSATE SODIUM 100 MG CAPSULE PO SCH (09:55)
[2018-12-21] MEDS: PRENATAL VITAMIN W DHA CAPSULE PO SCH (09:55)
[2018-12-21 11:48] VITALS: BP 109/77
== END 2018-12-21 12:53 | disposition home or self-care (01) | DRG 788 ==
LOC: 2S 05:20
PROVIDERS: ADMIT Obstetrics & Gynecology Gynecology; ATTEND Obstetrics & Gynecology Gynecology
PROC: 4A1HXCZ Monitoring of Products of Conception, Cardiac Rate, External Approach (ICD-10-PCS; 2018-12-19)
PROC: 10D00Z1 Extraction of Products of Conception, Low, Open Approach (ICD-10-PCS; principal; 2018-12-19 08:30)
DX: O24.420 Gestational diabetes mellitus in childbirth, diet controlled (principal); O99.344 Other mental disorders complicating childbirth; Z87.59 Personal history of other complications of pregnancy, childbirth and the puerperium; F41.9 Anxiety disorder, unspecified; F32.9 Major depressive disorder, single episode, unspecified; Z37.0 Single live birth; Z90.49 Acquired absence of other specified parts of digestive tract; Z3A.39 39 weeks gestation of pregnancy
CPT/HCPCS: 1961; 36415; 59025; 80307; 81001; 82962; 85025; 85027; 85461; 86850; 86900; 86901; 94799; J0131; J1885; J2250; J2270; J2550; J2590; J2790; J3010; J3490; J7120

== ENCOUNTER 2020-06-19 14:12 | Emergency (ER) | payer BC, MEDICAID ==
[2020-06-19] MEDS ORDERED: KETOROLAC TROMETHAMINE INJ/PF 30 MG/1 ML SDV IV ONE (14:20)
[2020-06-19] MEDS ORDERED: ONDANSETRON HCL INJ/PF 4 MG/2 ML SDV IV ONE (14:20)
--- NOTE | 2020-06-19 14:21 | ER Document Report ---
ED Medical Screen (RME) - General Chief Complaint: Pelvic Pain Stated Complaint: PELVIC PAIN Time Seen by Provider: 06/19/20 14:17 Primary Care Provider: RODRIGUEZ MCKEON MD [Primary Care Provider] - Follow up as needed Mode of Arrival: Ambulatory Information source: Patient Notes: Otherwise healthy 30-year-old female presents the emergency department chief complaint of left lower quadrant abdominal pain that began last night. Patient reports a history of ovarian cyst, states this felt similar although they usually rupture on their own and this pain is worse than usual. She reports nausea that accompanies the pain to. Denies any fever, chills, vomiting or diarrhea. Reports normal BM this morning. Point tenderness to the left lower quadrant/suprapubic area. I have greeted and performed a rapid initial assessment of this patient. A comprehensive ED assessment and evaluation of the patient, analysis of test results and completion of the medical decision making process will be conducted by additional ED providers. I have specifically instructed the patient or family members with the patient to immediately return to any nursing staff should anything change in the patient's condition or with their chief complaint. TRAVEL OUTSIDE OF THE [place] IN LAST 30 DAYS: No - Related Data Allergies/Adverse Reactions: No Known Allergies Allergy (Verified 12/17/18 10:22) Past Medical History - Past Medical History Cardiac Medical History: Denies: Hx Pulmonary Embolism Pulmonary Medical History: Reports: Hx Asthma - worse as a child Denies: Hx Sleep Apnea, Hx Tuberculosis Endocrine Medical History: Denies: Hx Hyperthyroidism, Hx Hypothyroidism Renal/ Medical History: Reports: Hx Kidney Stones, Hx Ovarian Cysts. Denies: Hx Peritoneal Dialysis, Hx Pelvic Inflammatory Disease Malignancy Medical History: Denies: Hx Breast Cancer, Hx Cervical Cancer, Hx Ovarian Cancer GI Medical History: Denies: Hx Gastroesophageal Reflux Disease, Hx Hiatal Hernia, Hx Ulcer Psychiatric Medical History: Reports: Hx Anxiety, Hx Depression, Hx Post Traumatic Stress Disorder Denies: Hx Bipolar Disorder, Hx Schizophrenia Infectious Medical History: Denies: Hx HIV Past Surgical History: Reports: Hx Appendectomy Doctor's Discharge - Discharge Referrals: RODRIGUEZ MCKEON MD [Primary Care Provider] - Follow up as needed
[2020-06-19 15:03] LABS: ABSOLUTE BASOPHILS # (AUTO) 0.1 10^3/uL (0.0-0.2); ABSOLUTE EOSINOPHILS # (AUTO) 0.1 10^3/uL (0.0-0.6); ABSOLUTE LYMPHOCYTES (AUTO) 2.4 10^3/uL (0.5-4.7); ABSOLUTE MONOCYTES (AUTO) 0.7 10^3/uL (0.1-1.4); ABSOLUTE NEUT (AUTO) 6.6 10^3/uL (1.7-8.2); BASOPHILS % (AUTO) 0.8 % (0-2); EOSINOPHILS % (AUTO) 0.8 % (0-6); HEMATOCRIT 43.4 % (36.0-47.0); HEMOGLOBIN 15.2 g/dL (12.0-15.5); LYMPHOCYTES % (AUTO) 24.3 % (13-45); MEAN CORPUSCULAR HEMOGLOBIN 30.9 pg (27.0-33.4); MEAN CORPUSCULAR VOLUME 88 fl (80-97); MONOCYTES % (AUTO) 6.8 % (3-13); PLATELET COUNT 307 10^3/uL (150-450); RED BLOOD COUNT 4.92 10^6/uL (3.72-5.28); RED CELL DISTRIBUTION WIDTH 12.6 % (11.5-14.0); SEGMENTED NEUTROPHILS % (AUTO) 67.3 % (42-78); TOTAL CELLS COUNTED % (AUTO) 100 %; WHITE BLOOD COUNT 9.8 10^3/uL (4.0-10.5)
[2020-06-19 15:08] LABS: ALBUMIN 4.5 g/dL (3.5-5.0); ALKALINE PHOSPHATASE 59 U/L (38-126); ANION GAP 10 (5-19); ASPARTATE AMINO TRANSFERASE 20 U/L (14-36); BILIRUBIN,DIRECT 0.2 mg/dL (0.0-0.4); BILIRUBIN,TOTAL 0.5 mg/dL (0.2-1.3); BLOOD UREA NITROGEN 12 mg/dL (7-20); CALCIUM 9.5 mg/dL (8.4-10.2); CARBON DIOXIDE 23 mmol/L (22-30); CHLORIDE 104 mmol/L (98-107); GLUCOSE 98 mg/dL (75-110); POTASSIUM 4.1 mmol/L (3.6-5.0); TOTAL PROTEIN 7.8 g/dL (6.3-8.2)
[2020-06-19 15:17] LABS: APPEARANCE,URINE CLEAR; BILIRUBIN,URINE NEGATIVE (NEGATIVE); COLOR,URINE YELLOW; GLUCOSE, URINE NEGATIVE (NEGATIVE); KETONES,URINE NEGATIVE (NEGATIVE); LEUKOCYTE ESTERASE,URINE NEGATIVE (NEGATIVE); NITRITE,URINE NEGATIVE (NEGATIVE); PROTEIN,URINE NEGATIVE (NEGATIVE); URINE SPECIFIC GRAVITY 1.018; UROBILINOGEN,URINE NEGATIVE mg/dL (<2.0)
--- NOTE | 2020-06-19 15:35 | RADIOLOGY REPORT (SQ) ---
EXAM DESCRIPTION: U/S NON OB PEL TV W/DOPPLER IMAGES COMPLETED DATE/TIME: 06/19/2020 3:14 pm REASON FOR STUDY: LLQ pain COMPARISON: None. TECHNIQUE: Dynamic and static grayscale images acquired of the pelvis via transvaginal approach and recorded on PACS. Additional selected color Doppler and spectral images recorded. LIMITATIONS: None. FINDINGS: UTERUS: Contour normal. No mass. ENDOMETRIAL STRIPE: No focal or generalized thickening. No masses. CERVIX: No nabothian cysts. RIGHT OVARY AND DOPPLER: Normal size. No worrisome masses. Normal arterial vascular flow without evid ence for torsion. LEFT OVARY AND DOPPLER: Normal size. 1.9 cm complex left ovarian cyst. Normal arterial vascular alexei w without evidence for torsion. FREE FLUID: None noted. OTHER: No other significant finding. MEASUREMENTS: UTERUS: 9.5 x 5.4 x 4.8 cm ENDOMETRIAL STRIPE: 11 mm RIGHT OVARY: 2.1 x 1.7 x 1.7 cm LEFT OVARY: 3.4 x 2.7 x 2.6 cm IMPRESSION: 1.9 cm complex left ovarian cyst. Normal arterial vascular flow without evidence for to rsion. TECHNICAL DOCUMENTATION: JOB ID: [id number] [place]-72 2010 [employer]- All Rights Reserved Rev-03/15 Reading location - IP/workstation name: [email or web address]
[2020-06-19] MEDS ORDERED: FENTANYL CITRATE INJ/PF 100 MCG/2 ML AMPUL IV ONE (15:37)
--- NOTE | 2020-06-19 15:38 | ER Document Report ---
ED GI/ - General Chief Complaint: Abdominal Pain Stated Complaint: PELVIC PAIN Time Seen by Provider: 06/19/20 14:17 Primary Care Provider: RODRIGUEZ MCKEON MD [ACTIVE STAFF] - 06/21/20 Mode of Arrival: Ambulatory Information source: Patient Notes: Patient presents complaining of left lower quadrant abdominal pain that started yesterday. Patient states the pain is made her nauseous and she is vomited 1 time. Patient denies any diarrhea. Patient denies any fever. Patient reports last bowel movement was normal and was today. Patient does complain of some mild dysuria. TRAVEL OUTSIDE OF THE [place] IN LAST 30 DAYS: No - HPI Patient complains to provider of: Pelvic pain Onset: Yesterday Timing/Duration: Worse Quality of pain: Sharp Pain Level: 4 Location: LLQ Vaginal bleeding (Compared to normal period): None Associated symptoms: Dysuria, Nausea, Vomiting. denies: Chills, Fever, Urinary hesitancy, Urinary frequency, Urinary retention, Urinary urgency, Vaginal discharge Exacerbated by: Denies Relieved by: Denies Similar symptoms previously: Yes - Ovarian cyst Recently seen / treated by doctor: No - Related Data Allergies/Adverse Reactions: No Known Allergies Allergy (Verified 12/17/18 10:22) Home Medications: control, zoloft, seroquel, marinol Past Medical History - General Information source: Patient - Social History Smoking Status: Never Smoker Chew tobacco use (# tins/day): No Frequency of alcohol use: None Drug Abuse: None Occupation: None Lives with: Family Family History: Reviewed & Not Pertinent - Past Medical History Cardiac Medical History: Denies: Hx Pulmonary Embolism Pulmonary Medical History: Reports: Hx Asthma - worse as a child Denies: Hx Sleep Apnea, Hx Tuberculosis Endocrine Medical History: Denies: Hx Hyperthyroidism, Hx Hypothyroidism Renal/ Medical History: Reports: Hx Kidney Stones, Hx Ovarian Cysts. Denies: Hx Peritoneal Dialysis, Hx Pelvic Inflammatory Disease Malignancy Medical History: Denies: Hx Breast Cancer, Hx Cervical Cancer, Hx Ovarian Cancer GI Medical History: Denies: Hx Gastroesophageal Reflux Disease, Hx Hiatal Hernia, Hx Ulcer Psychiatric Medical History: Reports: Hx Anxiety, Hx Depression, Hx Post Traumatic Stress Disorder Denies: Hx Bipolar Disorder, Hx Schizophrenia Infectious Medical History: Denies: Hx HIV Past Surgical History: Reports: Hx Appendectomy, Hx Section Review of Systems - Review of Systems Constitutional: No symptoms reported. denies: Fever EENT: No symptoms reported Cardiovascular: No symptoms reported Respiratory: No symptoms reported. denies: Cough, Short of breath Gastrointestinal: Abdominal pain, Nausea, Vomiting. denies: Diarrhea Genitourinary: Dysuria. denies: Flank pain, Hematuria Female Genitourinary: No symptoms reported. denies: Vaginal discharge, Vaginal bleeding Musculoskeletal: No symptoms reported. denies: Back pain Skin: No symptoms reported Hematologic/Lymphatic: No symptoms reported Neurological/Psychological: No symptoms reported Physical Exam - Vital signs Vitals: Temp 98.9 F 06/19/20 14:19 - General General appearance: Appears well, Alert In distress: None - HEENT Head: Normocephalic, Atraumatic Eyes: Normal Conjunctiva: Normal Nasal: Normal Mouth/Lips: Normal Mucous membranes: Normal Neck: Normal, Supple. No: Lymphadenopathy - Respiratory Respiratory status: No respiratory distress Chest status: Nontender Breath sounds: Normal. No: Rales, Rhonchi, Stridor, Wheezing Chest palpation: Normal - Cardiovascular Rhythm: Regular Heart sounds: S1 appreciated, S2 appreciated - Abdominal Inspection: Normal Distension: No distension Bowel sounds: Normal Tenderness: Tender - LLQ, Guarding Organomegaly: No organomegaly - Back Back: Normal, Nontender. No: CVA tenderness - Extremities General upper extremity: Normal inspection, Nontender, Normal strength General lower extremity: Normal inspection, Nontender, Normal strength - Neurological Neuro grossly intact: Yes Cognition: Normal [place] Coma Scale Eye Opening: Spontaneous [place] Coma Scale Verbal: Oriented [place] Coma Scale Motor: Obeys Commands [place] Coma Scale Total: 15 - Psychological Associated symptoms: Normal affect, Normal mood - Skin Skin Temperature: Warm Skin Moisture: Dry Skin Color: Normal Course - Re-evaluation Re-evalutation: 06/19/20 15:56 Patient with a complex left ovarian cyst that measures 1.9 cm. Patient given a dose of pain medication and she does state that her pain is much better at this time. Patient encouraged to follow-up with a clinical assistant for any persistent pain or problems. Patient presents with abdominal pain without signs of peritonitis or other life-threatening or serious etiology. Patient appears stable for discharge and has been instructed to return immediately if the symptoms worsen in any way. - Vital Signs Vital signs: Temp Pulse Resp BP Pulse Ox 98.3 F 72 16 109/61 100 06/19/20 16:43 06/19/20 16:43 06/19/20 16:43 06/19/20 16:43 06/19/20 16:43 - Laboratory Result Diagrams: 06/19/20 14:36 06/19/20 14:36 Laboratory results interpreted by me: 06/19/20 14:36 Urine Blood MODERATE H 06/19/20 15:57 Labs- All tests 24 hr 06/19/20 06/19/20 06/19/20 14:36 14:36 14:36 WBC 9.8 RBC 4.92 Hgb 15.2 Hct 43.4 MCV 88 MCH 30.9 MCHC 35.0 RDW 12.6 Plt Count 307 Lymph % (Auto) 24.3 [place] % (Auto) 6.8 Eos % (Auto) 0.8 Baso % (Auto) 0.8 Absolute Neuts (auto) 6.6 Absolute Lymphs (auto) 2.4 Absolute Monos (auto) 0.7 Absolute Eos (auto) 0.1 Absolute Basos (auto) 0.1 Seg Neutrophils % 67.3 Sodium 137.1 Potassium 4.1 Chloride 104 Carbon Dioxide 23 Anion Gap 10 BUN 12 Creatinine 0.63 Est GFR ( Amer) > 60 Est GFR (MDRD) Non-Af > 60 Glucose 98 Calcium 9.5 Total Bilirubin 0.5 Direct Bilirubin 0.2 Neonat Total Bilirubin Not Reportable Neonat Direct Bilirubin Not Reportable Neonat Indirect Bili Not Reportable AST 20 ALT 18 Alkaline Phosphatase 59 Total Protein 7.8 Albumin 4.5 Serum HCG, Qual NEGATIVE Urine Color Urine Appearance Urine pH Ur Specific [place] Urine Protein Urine Glucose (UA) Urine Ketones Urine Blood Urine Nitrite Urine Bilirubin Urine Urobilinogen Ur Leukocyte Esterase Urine WBC (Auto) Urine RBC (Auto) Squamous Epi Cells Auto Urine Mucus (Auto) Urine Ascorbic Acid 06/19/20 14:36 WBC RBC Hgb Hct MCV MCH MCHC RDW Plt Count Lymph % (Auto) [place] % (Auto) Eos % (Auto) Baso % (Auto) Absolute Neuts (auto) Absolute Lymphs (auto) Absolute Monos (auto) Absolute Eos (auto) Absolute Basos (auto) Seg Neutrophils % Sodium Potassium Chloride Carbon Dioxide Anion Gap BUN Creatinine Est GFR ( Amer) Est GFR (MDRD) Non-Af Glucose Calcium Total Bilirubin Direct Bilirubin Neonat Total Bilirubin Neonat Direct Bilirubin Neonat Indirect Bili AST ALT Alkaline Phosphatase Total Protein Albumin Serum HCG, Qual Urine Color YELLOW Urine Appearance CLEAR Urine pH 6.0 Ur Specific [place] 1.018 Urine Protein NEGATIVE Urine Glucose (UA) NEGATIVE Urine Ketones NEGATIVE Urine Blood MODERATE H Urine Nitrite NEGATIVE Urine Bilirubin NEGATIVE Urine Urobilinogen NEGATIVE Ur Leukocyte Esterase NEGATIVE Urine WBC (Auto) 0 Urine RBC (Auto) 4 Squamous Epi Cells Auto <1 Urine Mucus (Auto) RARE Urine Ascorbic Acid NEGATIVE - Diagnostic Test Radiology reviewed: Reports reviewed Discharge - Discharge Clinical Impression: Left ovarian cyst Condition: Stable Disposition: HOME, SELF-CARE Instructions: Oral Narcotic Medication ([facility]), Ovarian Cyst ([facility]), Pelvic Pain ([facility]) Additional Instructions: Return immediately for any new or worsening symptoms: Worsening pain, fever, persistent vomiting, any concerning new symptoms Followup with your primary care provider, call tomorrow to make a followup appointment Follow-up with clinical assistant for further management of your left ovarian cyst Prescriptions: Naproxen [Naprosyn 250 Nmg Tablet] 1 tab PO BID #14 tablet Hydrocodone/Acetaminophen [[place] 5-325 mg Tablet] 1 tab PO Q6 PRN #10 tablet PRN Reason: Ondansetron [Zofran Odt 4 mg Tablet] 1 tab PO Q6H #15 tab.rapdis Forms: Parent Work Note Referrals: RODRIGUEZ MCKEON MD [ACTIVE STAFF] - 06/21/20
[2020-06-19 16:43] VITALS: BP 109/61
== END 2020-06-19 16:44 | disposition home or self-care (01) ==
LOC: ER 14:12
DX: N83.202 Unspecified ovarian cyst, left side (principal); R10.32 Left lower quadrant pain; R10.814 Left lower quadrant abdominal tenderness; R11.2 Nausea with vomiting, unspecified; R30.0 Dysuria; J45.909 Unspecified asthma, uncomplicated; F41.9 Anxiety disorder, unspecified; F32.9 Major depressive disorder, single episode, unspecified; Z79.3 Long term (current) use of hormonal contraceptives; Z79.899 Other long term (current) drug therapy
CPT/HCPCS: 99285; 96374; 96375; 36415; 84703; 85025; 80053; 81001; 76830; 93976; J3010; J1885; J2405

== ENCOUNTER 2020-11-04 15:56 | Emergency (ER) | payer BC, MEDICAID ==
[2020-11-04] MEDS ORDERED: KETOROLAC TROMETHAMINE INJ/PF 30 MG/1 ML SDV IM ONE (18:36)
[2020-11-04] MEDS ORDERED: ONDANSETRON 4 MG TAB.RAPDIS PO ONE (18:36)
--- NOTE | 2020-11-04 18:38 | ER Document Report ---
ED Medical Screen (RME) - General Chief Complaint: Breast Problem Stated Complaint: BREAST PAIN Time Seen by Provider: 11/04/20 18:18 Mode of Arrival: Ambulatory Information source: Patient TRAVEL OUTSIDE OF THE [place] IN LAST 30 DAYS: No - HPI Patient complains to provider of: Axillary and breast pain Notes: 11/04/20 18:36 Patient here with complaints of pain in the bilateral axillary areas that is radiating into the sides of her breast. Pain started today. She denies any trauma or injury. She denies any redness or swelling. She denies any fever. She does states that she has had some nausea and vomiting due to the pain. No abdominal pain. She is not breast-feeding. She denies any nipple discharge. Exam: Nontoxic, no distress. Lungs clear throughout. Heart sounds normal. Significant tenderness to palpation of the bilateral axilla and lateral aspects of the breast with no mass, redness or swelling identified. Exam performed with female fireproof door assembler at the bedside. An initial examination was made on the patient as part of the triage process, and it was determined a more comprehensive evaluation was necessary. Initial orders were placed and patient was transferred to another provider in the ED who assumed care and finished evaluation and plan. - Related Data Allergies/Adverse Reactions: No Known Allergies Allergy (Verified 11/04/20 18:15) Home Medications: ZOLOFT. SEROQUEL. MARINOL. CONTROL Past Medical History - Social History Chew tobacco use (# tins/day): No Frequency of alcohol use: None Drug Abuse: None - Past Medical History Cardiac Medical History: Denies: Hx Pulmonary Embolism Pulmonary Medical History: Reports: Hx Asthma - worse as a child Denies: Hx Sleep Apnea, Hx Tuberculosis Endocrine Medical History: Denies: Hx Hyperthyroidism, Hx Hypothyroidism Renal/ Medical History: Reports: Hx Kidney Stones, Hx Ovarian Cysts. Denies: Hx Peritoneal Dialysis, Hx Pelvic Inflammatory Disease Malignancy Medical History: Denies: Hx Breast Cancer, Hx Cervical Cancer, Hx Ovarian Cancer GI Medical History: Denies: Hx Gastroesophageal Reflux Disease, Hx Hiatal Hernia, Hx Ulcer Psychiatric Medical History: Reports: Hx Anxiety, Hx Depression, Hx Post Traumatic Stress Disorder Denies: Hx Bipolar Disorder, Hx Schizophrenia Infectious Medical History: Denies: Hx HIV Past Surgical History: Reports: Hx Appendectomy, Hx Section Physical Exam - Vital signs Vitals: Temp Pulse Resp BP Pulse Ox 99.1 F 77 15 124/88 H 98 11/04/20 16:29 11/04/20 16:29 11/04/20 16:29 11/04/20 16:29 11/04/20 16:29 Course - Vital Signs Vital signs: Temp Pulse Resp BP Pulse Ox 99.1 F 77 15 124/88 H 98 11/04/20 18:16 11/04/20 16:29 11/04/20 16:29 11/04/20 16:29 11/04/20 16:29
--- NOTE | 2020-11-04 19:09 | RADIOLOGY REPORT (SQ) ---
EXAM DESCRIPTION: CHEST 2 VIEWS IMAGES COMPLETED DATE/TIME: 11/04/2020 5:52 pm REASON FOR STUDY: bilateral chest/breast pain COMPARISON: None. EXAM PARAMETERS: NUMBER OF VIEWS: two views TECHNIQUE: Digital Frontal and Lateral radiographic views of the chest acquired. RADIATION DOSE: NA LIMITATIONS: none FINDINGS: LUNGS AND PLEURA: No opacities, masses or pneumothorax. No pleural effusion. MEDIASTINUM AND HILAR STRUCTURES: No masses or contour abnormalities. HEART AND VASCULAR STRUCTURES: Heart normal size. No evidence for failure. BONES: No acute findings. HARDWARE: None in the chest. OTHER: No other significant finding. IMPRESSION: NO ACUTE RADIOGRAPHIC FINDING IN THE CHEST. TECHNICAL DOCUMENTATION: JOB ID: [id number] 2010 [employer]- All Rights Reserved Reading location - IP/workstation name: [email or web address]
[2020-11-04 19:30] LABS: ABSOLUTE EOSINOPHILS # (AUTO) 0.1 10^3/uL (0.0-0.6); ABSOLUTE LYMPHOCYTES (AUTO) 2.9 10^3/uL (0.5-4.7); ABSOLUTE MONOCYTES (AUTO) 0.7 10^3/uL (0.1-1.4); ABSOLUTE NEUT (AUTO) 5.8 10^3/uL (1.7-8.2); BASOPHILS % (AUTO) 0.4 % (0-2); EOSINOPHILS % (AUTO) 1.1 % (0-6); HEMATOCRIT 39.3 % (36.0-47.0); HEMOGLOBIN 13.7 g/dL (12.0-15.5); MEAN CORPUSCULAR HEMOGLOBIN 30.6 pg (27.0-33.4); MEAN CORPUSCULAR HGB CONC 34.9 g/dL (32.0-36.0); MEAN CORPUSCULAR VOLUME 88 fl (80-97); MONOCYTES % (AUTO) 7.2 % (3-13); PLATELET COUNT 302 10^3/uL (150-450); RED BLOOD COUNT 4.47 10^6/uL (3.72-5.28); RED CELL DISTRIBUTION WIDTH 12.5 % (11.5-14.0); SEGMENTED NEUTROPHILS % (AUTO) 61.3 % (42-78); TOTAL CELLS COUNTED % (AUTO) 100 %; WHITE BLOOD COUNT 9.5 10^3/uL (4.0-10.5)
[2020-11-04 19:46] LABS: ALBUMIN 4.2 g/dL (3.5-5.0); ALKALINE PHOSPHATASE 71 U/L (38-126); ANION GAP 6 (5-19); ASPARTATE AMINO TRANSFERASE 21 U/L (14-36); BILIRUBIN,DIRECT 0.2 mg/dL (0.0-0.4); BILIRUBIN,TOTAL 0.3 mg/dL (0.2-1.3); BLOOD UREA NITROGEN 14 mg/dL (7-20); CALCIUM 9.4 mg/dL (8.4-10.2); CARBON DIOXIDE 26 mmol/L (22-30); CHLORIDE 105 mmol/L (98-107); GLUCOSE 94 mg/dL (75-110); POTASSIUM 4.2 mmol/L (3.6-5.0); TOTAL PROTEIN 7.3 g/dL (6.3-8.2)
[2020-11-04] MEDS ORDERED: HYDROCODONE/ACETAMINOPHEN 5-325 MG TABLET PO ONE (21:44)
--- NOTE | 2020-11-04 22:44 | RADIOLOGY REPORT (SQ) ---
EXAM DESCRIPTION: U/S EXTREMITY NONVASCULAR LTD CLINICAL HISTORY: 30 years Female, Left axillary lymph nodes pain to breasts TECHNIQUE: The left axilla was evaluated using a high frequency linear array transducer. Color flow imaging was performed. COMPARISON: None. FINDINGS: No mass. No lymphadenopathy. No focal fluid collections. IMPRESSION: Unremarkable ultrasound of the left axilla.
--- NOTE | 2020-11-04 22:45 | RADIOLOGY REPORT (SQ) ---
EXAM DESCRIPTION: U/S EXTREMITY NONVASCULAR LTD CLINICAL HISTORY: 30 years Female, right axillary lymph node pain to breast TECHNIQUE: The right axilla was evaluated using a high frequency linear array transducer. Color flow imaging was not performed. COMPARISON: None. FINDINGS: No mass. No fluid collections. No lymphadenopathy. IMPRESSION: Unremarkable ultrasound of the right axilla. No obvious abnormality was seen.
--- NOTE | 2020-11-04 22:53 | ER Document Report ---
ED Breast Problem - General Chief Complaint: Breast Problem Stated Complaint: BREAST PAIN Time Seen by Provider: 11/04/20 18:18 Primary Care Provider: UMANG THOMAS PA-C [Primary Care Provider] - Follow up in 3-5 days Mode of Arrival: Ambulatory TRAVEL OUTSIDE OF THE [place] IN LAST 30 DAYS: No - HPI Notes: Patient is a 36-year-old female with a past medical history of anxiety who presents with bilateral axillary pain. Patient states she awoke from sleep today with left-sided axillary pain. She thought that she had just slept wrong. Pain then went to her right axillary. She states that it radiates down towards her breasts. She denies any trauma. No recent increase in physical activity. Patient states this has never happened to her before. She states that she does not have any chest pain or shortness of breath. Pain is not pleuritic. She states that it is a sharp pain and is worse when it is pressed on. No headaches, lightheadedness, fevers or chills. She denies any nipple drainage. She states the breast themselves are nontender, it is the shooting pain from her axillary area that travels to her breasts. States she tried Tylenol and Motrin without relief. - Related Data Allergies/Adverse Reactions: No Known Allergies Allergy (Verified 11/04/20 18:15) Home Medications: ZOLOFT. SEROQUEL. MARINOL. CONTROL Past Medical History - General Information source: Patient - Social History Smoking Status: Never Smoker Chew tobacco use (# tins/day): No Frequency of alcohol use: None Drug Abuse: None Family History: Reviewed & Not Pertinent Patient has homicidal ideation: No - Past Medical History Cardiac Medical History: Denies: Hx Pulmonary Embolism Pulmonary Medical History: Reports: Hx Asthma - worse as a child Denies: Hx Sleep Apnea, Hx Tuberculosis Endocrine Medical History: Denies: Hx Hyperthyroidism, Hx Hypothyroidism Renal/ Medical History: Reports: Hx Kidney Stones, Hx Ovarian Cysts. Denies: Hx Peritoneal Dialysis, Hx Pelvic Inflammatory Disease Malignancy Medical History: Denies: Hx Breast Cancer, Hx Cervical Cancer, Hx Ovarian Cancer GI Medical History: Denies: Hx Gastroesophageal Reflux Disease, Hx Hiatal Hernia, Hx Ulcer Psychiatric Medical History: Reports: Hx Anxiety, Hx Depression, Hx Post Trauma tic Stress Disorder Denies: Hx Bipolar Disorder, Hx Schizophrenia Infectious Medical History: Denies: Hx HIV Past Surgical History: Reports: Hx Appendectomy, Hx Section Review of Systems - Review of Systems Notes: CONSTITUTIONAL: No fever, fatigue or weight loss. SKIN: No rash. HENT: No congestion, ear pain, or sore throat. CARDIOVASCULAR: No chest pain or edema. RESPIRATORY: No cough, shortness of breath, congestion, or wheezing. GASTROINTESTINAL: No abdominal pain, nausea, vomiting, bloody stools or diarrhea. GENITOURINARY: No dysuria. MUSCULOSKELETAL: No joint pain or swelling. Pain under left and right axillary areas. LYMPHATIC: No swollen glands. NEUROLOGIC: No seizures. No headache, focal weakness or sensory changes. HEMATOLOGIC: No unusual bruising or bleeding. PSYCHIATRIC: No depression or anxiety. Physical Exam - Vital signs Vitals: Temp Pulse Resp BP Pulse Ox 99.1 F 77 15 124/88 H 98 11/04/20 16:29 11/04/20 16:29 11/04/20 16:29 11/04/20 16:29 11/04/20 16:29 - General General appearance: Appears well In distress: None Notes: VITAL SIGNS: Within normal limits. GENERAL: No acute distress, non-toxic appearance. HEAD: Normal with no signs of head trauma. EYES: Conjunctiva normal, no discharge. EARS: Hearing grossly intact. NECK: Normal range of motion, no tenderness, supple, no lymphadenopathy, No adenopathy, no JVD. CHEST: Clear breath sounds bilaterally. No rash. No ecchymosis on chest. CARDIAC: Regular rate and rhythm. VASCULAR: No Edema. ABDOMEN: Normal and soft GENITOURINARY: Normal, No tenderness LYMPATHTIC: No lymphadenopathy noted. No palpable lymph nodes in the axillary area. MUSCULOSKELETAL: Good range of motion of all major joints. Extremities without clubbing, cyanosis or edema. NEUROLOGICAL: Alert and oriented x 3. No focal sensory or strength deficits. Speech normal. Follows commands appropriately. PSYCHIATRIC: Appears anxious. SKIN: Normal appearance with no rashes or lesions. Course - Re-evaluation Re-evalutation: 11/04/20 22:53 Patient's work-up so far is nondiagnostic. I have ordered bilateral axillary lymph node ultrasounds which are negative. Pain is very reproducible on palpation, likely this is muscular. I do not suspect a PE. I will obtain a cardiac work-up for completeness. Patient states she feels much better after treatment. I did discuss all results with her. She will need to follow-up with her PCP. Patient is very agreeable to this plan. 11/05/20 05:58 - Vital Signs Vital signs: Temp Pulse Resp BP Pulse Ox 99.1 F 77 15 124/88 H 98 11/04/20 18:16 11/04/20 16:29 11/04/20 16:29 11/04/20 16:29 11/04/20 16:29 - Laboratory Results Result Diagrams: 11/04/20 18:59 11/04/20 18:59 Critical Laboratory Results Reviewed: No Critical Results - Radiology Results Critical Radiology Results Reviewed: No Critical Results - EKG Interpretation by Me EKG shows normal: Sinus rhythm Rate: Normal Rhythm: NSR When compared to previous EKG there are: No significant change Additional EKG results interpreted by me: 11/05/20 00:02 Sinus rhythm at a rate of 59. QTc 424. No acute ST changes. EKG is similar to previous. Discharge - Discharge Clinical Impression: Axillary pain Qualifiers: Laterality: unspecified laterality Qualified Code(s): M79.629 - Pain in u nspecified upper arm Condition: Stable Disposition: HOME, SELF-CARE Instructions: Myalagia (Muscle Pain) ([facility]) Additional Instructions: Your work-up today is reassuring. Please follow-up with your family doctor. You can take Tylenol and ibuprofen. You may use warm compresses on the area. Please return to the ER immediately for any worsening symptoms. Referrals: UMANG THOMAS PA-C [Primary Care Provider] - Follow up in 3-5 days
--- NOTE | 2020-11-04 23:42 | EKG REPORT ---
SEVERITY:- BORDERLINE ECG - SINUS RHYTHM INFERIOR Q WAVES, PROBABLY NORMAL VARIATION : Confirmed by: Mariia Holloway 04-Nov-2020 23:41:38
[2020-11-05 01:07] VITALS: BP 118/75
== END 2020-11-05 01:00 | disposition home or self-care (01) ==
LOC: ER 15:56
DX: M79.629 Pain in unspecified upper arm (principal); N64.4 Mastodynia; Z79.3 Long term (current) use of hormonal contraceptives; Z87.442 Personal history of urinary calculi
CPT/HCPCS: 93005; 99285; 96372; 36415; 84703; 85025; 80053; 84484; 71046; 76882; 93010; S0119; J1885